=== PATIENT | female | born 1970 | race Caucasian/White ===

== ENCOUNTER → 2018-05-07 10:40 | Outpatient (REF) | payer OTHER, SELFPAY ==
--- NOTE | 2018-05-07 10:00 | PAPFT_PTH ---
PATIENT: Afshan Bella LOC: [facility] U#:[id number] AGE/SX: 55/F ROOM: RE05/07/[address]: Edna Galvin MD, DC : 1970 BED: DIS: SPEC #: [id number] RECD: 05/07/18 12:55 STATUS: EMA REQ #: [id number] DENIS: 05/07/18 10:[address]: Edna Galvin DEPT: [facility] Cytology RECD BY: Jerri Tobias Tissues: 1 - CX/ENDOCX FOR PAP SMEARS Procedures: PAP THIN PREP/UVM Screening HPV DNA PROBE Comments: [id number]
== END ==
LOC: LBN 10:40
PROVIDERS: PCP Family Medicine; Visit Provider Family Medicine
DX: Z12.4 Encounter for screening for malignant neoplasm of cervix (principal); Z11.51 Encounter for screening for human papillomavirus (HPV)
CPT/HCPCS: 88142; 87624

== ENCOUNTER 2019-06-04 00:55 | Outpatient (CLI) | payer OTHER, SELFPAY ==
--- NOTE | 2019-06-04 08:19 | DI.MAMMO_ITS ---
EXAM: MG MAMMO SCREENING CLINICAL HISTORY: screening, Z12.39. TECHNIQUE: Mammograms were interpreted according to the usual protocol including computer analysis w ith CAD system, tomosynthesis and C-view imaging. COMPARISON: No exams were available for comparison FINDINGS: The breast tissue is heterogeneously radiodense, which lowers the sensitivity of the examination. Th ere is no dominant mass and there are no suspicious calcifications. IMPRESSION: There is no evidence of malignancy, category 1. BI-RADS category C. Annual screening mammography is recommended. No prior examinations were available and if follow-up prior images can be retrieved, th en an addendum report will follow.
== END 2019-06-04 01:15 ==
PROVIDERS: PCP Family Medicine; Visit Provider Family Medicine
DX: Z12.31 Encounter for screening mammogram for malignant neoplasm of breast (principal)
CPT/HCPCS: 77063; 77067

== ENCOUNTER 2020-05-18 15:46 | Outpatient (REF) | payer OTHER, SELFPAY ==
[2020-05-18 14:23] LABS: ALT 17 U/L (14-59); AST 16 U/L (15-37); Albumin 4.3 g/dL (3.4-5.0); Alkaline Phosphatase 67 U/L (46-116); Anion Gap 4.8 mmol/L (3-11); BUN 15 mg/dL (7-18); Bilirubin, Total 0.5 mg/dL (0.2-1.0); CO2 32.2 mmol/L (21.0-32.0); CREATININE 0.71 mg/dL (0.55-1.02); Calcium 8.9 mg/dL (8.5-10.1); Calculated LDL 73 mg/dL (<100); Chloride 105 mmol/L (98-107); Cholesterol 166 mg/dL (<200); Glucose 80 mg/dL (74-106); HDL Cholesterol 84 mg/dL (40-60); Potassium 4.1 mmol/L (3.5-5.1); Sodium 142 mmol/L (136-145); Total Protein 7.7 g/dL (6.4-8.2); Triglyceride 49 mg/dL (<150)
== END 2020-05-18 16:06 ==
LOC: LBN 15:46
PROVIDERS: PCP Family Medicine; Visit Provider Family Medicine
DX: Z00.00 Encounter for general adult medical examination without abnormal findings (principal); Z13.220 Encounter for screening for lipoid disorders; Z13.228 Encounter for screening for other metabolic disorders
CPT/HCPCS: 80053; 80061

== ENCOUNTER 2020-09-28 08:31 | Outpatient (CLI) | payer OTHER, SELFPAY ==
[2020-09-29 16:33] LABS: COVID-19 RT-PCR UVMMC Result Negative (Negative)
== END 2020-09-28 08:51 ==
PROVIDERS: PCP Family Medicine; Visit Provider Family Medicine
DX: R53.83 Other fatigue (principal); J34.89 Other specified disorders of nose and nasal sinuses
CPT/HCPCS: U0003

== ENCOUNTER 2021-05-24 11:45 | Outpatient (REF) | payer OTHER, SELFPAY ==
--- NOTE | 2021-05-24 08:45 | PAPFT_PTH ---
PATIENT: Afshan Bella LOC: [facility] U#:[id number] AGE/SX: 51/F ROOM: RE05/24/[address]: Edna Galvin MD, DC : 1970 BED: DIS: 05/24/2021 SPEC #: [id number] RECD: 05/24/21 12:28 STATUS: SKYLERBeverly RELizbet #: [id number] DENIS: 05/24/21 08:[address]: Edna Galvin DEPT: [facility] Cytology RECD BY: Cheryl Decker Tissues: 1 - CX/ENDOCX FOR PAP SMEARS Procedures: PAP THIN PREP/UVM Screening HPV DNA PROBE Comments: [id number]
== END 2021-05-24 11:46 | disposition home or self-care (01) ==
LOC: LBN 11:45
PROVIDERS: PCP Family Medicine; Visit Provider Family Medicine
DX: Z12.4 Encounter for screening for malignant neoplasm of cervix (principal); Z11.51 Encounter for screening for human papillomavirus (HPV); Z01.419 Encounter for gynecological examination (general) (routine) without abnormal findings
CPT/HCPCS: 88142; 87624

== ENCOUNTER 2021-06-16 02:17 | Outpatient (CLI) | payer OTHER, SELFPAY ==
--- NOTE | 2021-06-16 08:49 | DI.MAMMO_ITS ---
Exam(s) MAMMO SCREENING EXAM: MAMMO SCREENING CLINICAL HISTORY: screening,Z12.39 TECHNIQUE: Bilateral full field digital CC and MLO mammographic images were obtained with 3D tomosyn thesis and utilizing computer aided detection (CAD). COMPARISON: Available for comparison. FINDINGS: Masses/Architectural Distortion: None seen. Microcalcifications: No suspicious pleomorphic-type are seen. Skin Thickening/Nipple Retraction: None. IMPRESSION: 1. No significant interval change with no specific features of malignancy noted. 2. Unless there is more urgent need, screening mammography is recommended, as per [employer] [employer] guidelines. BI-RADS Category 1 - Negative Breast Density - Category C - Heterogeneously dense Breast density category C or D implies that the patient has dense breast tissue. Dense breast tissue is very common and is not abnormal but dense breast tissue can make it harder to find cancer on a ma mmogram. Also, dense breast tissue may increase their breast cancer risk. This information about the result of the mammogram report was provided to the patient to raise their awareness. Use this report when you speak with the patient about their risks for breast cancer, which includes their family hist ory. At that time, you may recommend for more screening tests (Ultrasound or MRI) as they might be us eful based on their risk. A negative radiographic report should not delay biopsy if a dominant or clinically suspicious mass is present. Up to ten percent of cancers are not identified on mammography. A negative report may reinforce clinical impression. Adenosis and dense breasts may obscure an underlying neoplasm. False positive reports average 6 to 10%. Patient will receive a letter notifying them of these results.
== END 2021-06-16 02:37 ==
PROVIDERS: PCP Family Medicine; Visit Provider Family Medicine
DX: Z12.31 Encounter for screening mammogram for malignant neoplasm of breast (principal)
CPT/HCPCS: 77063; 77067

== ENCOUNTER 2022-01-27 10:02 | Day surgery (SDC) | payer OTHER, SELFPAY ==
--- NOTE | 2022-01-26 16:28 | COLE_ITS ---
Colonoscopy Report Date of procedure: 01/27/22 Pre-op diagnosis general: Colon cancer screening Post-op diagnosis procedure note: other (Polyp) Surgeon: Loulou Huynh Anesthesia Type: General:No Airway Estimated blood loss (mL): 1 Pathology: other Complications: None Disposition: same day Prep: Miralax/Dulcolax Retraction Time: 11 Procedure Description: After informed consent was obtained the patient was taken to the procedure room and placed in a left decubitous position. Monitors were applied and a time out was done. The patients name, date of , procedure, allergies to medications and metal in their body was reviewed. The patient was then sedated. Once se dated and comfortable a rectal exam was done. External exam was normal. Internal exam revealed a normal sphincter tone and no palpable masses. The scope was then introduced and retrofelexed. No Internal hemorrhoids were identified. The scope was then advanced to the cecum without difficulty. She does have a tortuous/redundant colon. The TI and appendiceal orifice were identified. The prep was be BPS 3 in all segments for a total of 9.. The scope was then slowly retracted over 11 minutes back into the rectum. She has a 0.75 mm polyp first, slightly raised polyp, at 90 cm. This is removed with a cold snare. All specimen is retrieved and no bleeding is noted. There are no diverticula or other abnormalities visualized today. The mucosa is pink and healthy. Scope was removed and the patient was woken up and taken back to Same day surgery in stable condition. The patient tolerated the procedure well and there were no immediate complications. Follow up: The patient should follow up in 7 years unless they develop changes in bowel habits or other new gastrointestinal complaints.
--- NOTE | 2022-01-26 16:28 | PDOC.DSDIS_ITS ---
Discharge Plan Disposition Patient Disposition: HOME Condition: Good Discharge Details Reason For Visit: Colon scope Attending Provider: Loulou Huynh Primary Care Provider: Edna Galvin Home Meds and New Rx's Prescriptions: Discontinued polyethylene glycol 3350 17 gram/dose powder 238 g PO ONCE Qty: 238 0RF Rx Instructions: take per colonoscopy instructions bisacodyl [Dulcolax (bisacodyl)] 5 mg tablet,delayed release (DR/EC) 5 mg PO ONCE Qty: 4 0RF Rx Instructions: take per colonoscopy instructions Discharge Instructions Additional Instructions: DSU Colonoscopy Post- Op Instructions Instructions for Everyone who is given Anesthesia: For your safety, please do the following for the next twenty-four (24) hours: *Do Not operate a motor vehicle (car, truck, motorcycle, etc.) *Do Not drink alcoholic beverages or use any recreational drugs for the first 24 hours or while taking pain medications. The medications in your body may have a reaction that can be dangerous. *Do Not make any important decisions or sign any important papers. Findings: x1 small polyp Follow up: My office will send a letter in 2 to 3 weeks time detailing as to what type of polyp it was and when we want you to repeat the colonoscopy. 1. No lifting over 20 pounds or strenuous activity for the first 24 hours after your procedure. After 24 hours there are no restrictions on your activity but you may feel fatigued for a few days. 2. After you arrive home you may have a light meal and return to your normal diet as you can tolerate it without feeling sick to your stomach. 3. You may have a bloated, gaseous feeling in your belly (abdomen) after a colonoscopy. Passing gas and belching will help. Walking or lying down on your left side with your knees flexed may relieve the discomfort. Call the office at [phone] (Office) or [phone] (Hospital) right away if you notice any of the following: a.Vomiting of blood or ?coffee ground stools?. b.Rectal bleeding 1Tbsp, blood clots or continuous bleeding. c.Severe belly (abdominal) pain. d.A hard distended belly (abdomen) and an inability to pass gas. 4. Please don?t expect to have a normal BM (bowel movement) for 2-3 days after your procedure. 5. If there are questions regarding the findings of your procedure, please contact your doctor 6. If you are unable to contact your doctor with a problem, contact the hospital at [phone]. 7. Continue all your regular medications unless directed otherwise. I understand the above instructions and have no questions. Signature of Patient or Adult Escort Name of Responsible Adult Escort Signature of Nurse Date/Time Activity:: See above Diet:: See above Discharge Orders Discharge Orders: Discharge Order (Routine); Ordered 01/26/22 Ordered By: Loulou Huynh
[2022-01-27 10:28] VITALS: BP 109/68; PULSE 83; RESP 16; TEMP 36.3; O2SAT 99
[2022-01-27] MEDS: Lactated Ringers 1,000 ML 80 ML IV (10:55)
--- NOTE | 2022-01-27 11:08 | ANES.PREOP_ITS ---
General Info Date of Service Date Performed: 01/27/22 Height: 5 ft 7 in Weight: 59.4 kg Body Mass Index (BMI): 20.5 Surgical Procedure: Operation Date: 01/27/22 11:05 Proposed Procedure Side Surgeon edwin Huynh DO Meds Allergies and Home Medications Allergies Allergy/AdvReac Type Severity Reaction Status Date / Time No Known Allergies Allergy Unverified 01/27/22 10:27 Current Visit Medications: Current Medications Generic Name Dose Route Start Last Admin Trade Name Freq PRN Reason Stop Dose Admin Hyoscyamine Sulfate 0.125 mg 01/26/22 16:27 Hyoscyamine 0.125 Mg Sl/Oral/Chew SL DIRECTED PRN Ringer's Solution 1,000 mls @ 80 mls/hr 01/27/22 06:00 01/27/22 10:55 IV 02/25/22 23:59 80 mls/hr INFUSION MARIA DEL CARMEN Administration IV Miscellaneous Supplies 1 each 01/27/22 06:00 Iv Access IV 02/25/22 23:59 DIRECTED MARIA DEL CARMEN Ondansetron HCl 4 mg 01/26/22 16:27 Ondansetron 4 Mg/2 Ml Vial IVP Q4H PRN PRN Nausea / Vomiting Sodium Chloride 0 ml 01/27/22 06:00 Normal Saline Flush 10 Ml Syr IV 02/25/22 23:59 PRN PRN Sodium Chloride 0 ml 01/27/22 06:00 Normal Saline 10 Ml Vial IJ 02/25/22 23:59 DIRECTED PRN Sterile Water 0 ml 01/27/22 06:00 Water,Injection,Sterile 10 Ml Vial IJ 02/25/22 23:59 DIRECTED PRN PFSH Active Problems Active Problems: Problem Status Onset Code Uterine leiomyoma D25.9 Annual physical exam 02/22/16 Z00.00 Impacted cerumen of both ears H61.23 Encounter for screening colonoscopy Z12.11 Medical History Medical History (Updated 01/27/22 @ 10:26 by Nayeli Loza) 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 [place] murmur Tobacco Smoking/Tobacco Use Status: Never Passive smoking exposure: Yes Second hand exposure: Yes Alcohol Alcohol Intake: current Alcohol intake frequency: holidays/special occasions only Alcohol type: wine and hard liquor Substance Use Substance use: Never Substance use type: does not use Vital Signs and Lab Results Vital Signs Most Recent Vital Signs in EMR: Most Recent Vital Signs Temp Pulse Resp BP Pulse Ox 36.3 C L 83 16 109/68 99 01/27/22 10:28 01/27/22 10:28 01/27/22 10:28 01/27/22 10:28 01/27/22 10:28 Point of Care Results Point of Care Results: POC- Test(urine) Negative 01/27/22 10:44 Lab Results Blood Type / Crossmatch: No Data to Display Complete Blood Count: No Data to Display Complete Metabolic Panel: No Data to Display Liver Function Panel: No Data to Display Coagulation Panel: No Data to Display Cardiac Panel: No Data to Display Arterial Blood Gas: No Data to Display Venous Blood Gas: No Data to Display Pancreas Panel: No Data to Display Thyroid Panel: No Data to Display Infectious Disease: No Data to Display Blood Cultures: No Data to Display Toxicology Panel: No Data to Display Panel: No Data to Display Anesthesia Assessment and Plan Anesthesia History Personal History: No History of Anesthesia Complications Family History: No Family History of Anesthesia Complications Exercise Tolerance Exercise Tolerance: Metabolic Equivalents>4 Pertinent Negatives Pertinent Negatives: No Symptoms of GERD, No Major Cardiovascular Symptoms or Complaints (Mild murmur Grade 1) and No History of CVA/TIA Cardiac & Pulmonary Exam Cardiac Exam: Normal S1/S2 Heart Sounds Pulmonary Exam: Clear Bilateral Breath Sounds Implantable Cardiac Device Does patient have a Pacemaker or an ICD?: No Airway Exam Known Difficult Airway: No Mallampati Class: 1 Mouth Opening: Normal (> 3cm) Thyromental Distance: Greater than 3 cm Neck Range of Motion: Full ROM Neck Circumference: Normal Teeth Condition: Normal Dentition ASA Classification ASA Score: ASA 2 Emergency Case?: No NPO Status NPO Status: NPO Clears >2 hours, Solids >8 hours Status Status: Negative HCG Anesthesia Plan Resuscitation Status: Full Code Anesthesia Technique: General Anesthesia Airway Planned: Natural Airway Pain Management: Surgeon and patient request nerve block Monitors Used: Standard Monitors
[2022-01-27 11:13] VITALS: BMI 20.5
--- NOTE | 2022-01-27 11:34 | BOWEL_PTH ---
PATIENT: Afshan Bella LOC: [facility] U#:[id number] AGE/SX: 51/F ROOM: RE01/27/[address]: Loulou Huynh : 1970 BED: DIS: 01/27/2022 SPEC #: [id number] RECD: 01/27/22 12:09 STATUS: EMA RE #: [id number] DENIS: 01/27/22 11:[address]: Loulou Huynh DEPT: Surgical Specimen RECD BY: Cheryl Decker ENTERED: 01/27/22 12:10 SP TYPE: Bowel OTHR DR: Edna Galvin MD, DC Tissues: 1 - BIOPSY BOWEL Procedures: GROSS AND MICRO LEVEL 4 Comments: [id number]
[2022-01-27 11:52] VITALS: BP 108/73; PULSE 81; RESP 20; TEMP 36.3; O2SAT 98
--- NOTE | 2022-01-27 11:52 | W.ANESPOSTOP ---
Postoperative Evaluation Date, Time and Location Date Performed: 01/27/22 Time Performed: 10:53 Patient Location: Day Surgery Unit Vital Signs Most Recent Imported Vital Signs: Most Recent Vital Signs Temp Pulse Resp BP Pulse Ox 36.3 C L 83 16 109/68 99 01/27/22 10:28 01/27/22 10:28 01/27/22 10:28 01/27/22 10:28 01/27/22 10:28 Most Recent Manually Entered Vital Signs: Adult Blood Pressure: 108/73 Heart Rate: 81 Respirations: 12 Oxygen Saturation (%): 98 Temperature (C): 36.3 C Pain Score (0-10 Scale): 0 Pain Score Most Recent Pain Score: Most Recent Pain Score Pain Level 0 01/27/22 10:28 Assessment Mental Status: Awake (Alert & Oriented to Patient Baseline) Airway and Respiratory Function: Patent airway with normal (patient baseline) respiratory exam Cardiovascular Function: Hemodynamically Stable Hydration Status: Volume Overload (See Note) Nausea & Vomiting: No Nausea or Vomiting Pain: Pt. Denies Any Pain Peripheral Nerve Block: Patient did not receive a nerve block
[2022-01-27 11:54] VITALS: BP 108/73; PULSE 81; RESP 12; TEMPC 36.3; O2SAT 98
[2022-01-27 12:20] VITALS: BP 105/70; PULSE 68; RESP 18; TEMP 36.2; O2SAT 100
== END 2022-01-27 12:40 | disposition home or self-care (01) ==
PROVIDERS: PCP Family Medicine; Visit Provider Surgery
PROC: 0DJD8ZZ Inspection of Lower Intestinal Tract, Via Natural or Artificial Opening Endoscopic (ICD-10-PCS; CPT 45378; principal; 2022-01-27 11:00)
DX: Z12.11 Encounter for screening for malignant neoplasm of colon (principal); K63.5 Polyp of colon; K63.89 Other specified diseases of intestine
CPT/HCPCS: 45385; 81025; 88305

== ENCOUNTER → 2023-06-26 01:04 | Outpatient (CLI) | payer OTHER, SELFPAY ==
--- NOTE | 2023-06-26 06:30 | DI.MAMMO_ITS ---
Exam(s) MAMMO SCREENING EXAM: MAMMO SCREENING CLINICAL HISTORY: screening, z12.39 TECHNIQUE: Bilateral full field digital CC and MLO mammographic images were obtained with 3D tomosyn thesis and utilizing computer aided detection (CAD). COMPARISON: Available for comparison. FINDINGS: Masses/Architectural Distortion: None seen. Microcalcifications: No suspicious pleomorphic-type are seen. Skin Thickening/Nipple Retraction: None. IMPRESSION: 1. No significant interval change with no specific features of malignancy noted. 2. Unless there is more urgent need, screening mammography is recommended, as per [employer] guidelines. BI-RADS Category 1 - Negative Breast Density - Category C - Heterogeneously dense Breast density category C or D implies that the patient has dense breast tissue. Dense breast tissue is very common and is not abnormal but dense breast tissue can make it harder to find cancer on a ma mmogram. Also, dense breast tissue may increase their breast cancer risk. This information about the result of the mammogram report was provided to the patient to raise their awareness. Use this report when you speak with the patient about their risks for breast cancer, which includes their family hist ory. At that time, you may recommend for more screening tests (Ultrasound or MRI) as they might be us eful based on their risk. A negative radiographic report should not delay biopsy if a dominant or clinically suspicious mass is present. Up to ten percent of cancers are not identified on mammography. A negative report may reinforce clinical impression. Adenosis and dense breasts may obscure an underlying neoplasm. False positive reports average 6 to 10%. Patient will receive a letter notifying them of these results.
== END ==
PROVIDERS: PCP Family Medicine; Visit Provider Family Medicine
DX: Z12.31 Encounter for screening mammogram for malignant neoplasm of breast (principal)
CPT/HCPCS: 77063; 77067

== ENCOUNTER 2023-10-30 12:35 | Outpatient (CLI) | payer OTHER, SELFPAY ==
[2023-10-30 10:19] LABS: Abs Immature Grans 0.01 10^3/uL (0.0-0.06); Absolute Basophil Count 0.05 10^3/uL (0.0-0.2); Absolute Eosinophil Count 0.05 10^3/uL (0.0-0.7); Absolute Lymphocyte Count 1.84 10^3/uL (1.2-3.4); Absolute Neutrophil Count 3.91 10^3/uL (1.2-6.7); Basophils % 0.8; Eosinophils % 0.8; HCT 38.2 % (36.0-46.0); HGB 12.4 g/dL (11.2-15.7); Immature Grans % 0.2; Lymphocytes % 28.5; MCH 28.8 pg (27.0-33.0); MCHC 32.5 % (32.0-36.0); MCV 89 fL (80-95); MPV 9.1 fL (8.0-11.0); Monocytes % 9.3; Neutrophils % 60.4; Platelet Count 310 10^3/uL (130-400); RBC 4.31 10^6/uL (3.93-5.22); RDW 12.4 % (11.7-14.6); RDW-SD 40.5 fL; WBC 6.46 10^3/uL (4.4-10.8)
[2023-10-30 11:49] LABS: HCG Quant, Pregnancy 4 mIU/mL (1-3)
[2023-10-30 18:06] LABS: CEA <0.5 ng/mL (See Note)
[2023-10-30 18:35] LABS: CA 125 15 U/mL (<30)
[2023-10-31 09:27] LABS: CA 19-9 11 U/mL (<35)
[2023-11-01 11:16] LABS: HE4 54 pmol/L (<=140)
== END 2023-10-30 12:36 | disposition home or self-care (01) ==
LOC: LBO 12:36
PROVIDERS: PCP Family Medicine; Visit Provider Obstetrics & Gynecology
DX: N83.8 Other noninflammatory disorders of ovary, fallopian tube and broad ligament (principal)
CPT/HCPCS: 36415; 86304; 86305; 82378; 84702; 85025; 86301

== ENCOUNTER → 2023-11-07 01:04 | Outpatient (CLI) | payer OTHER, SELFPAY ==
--- NOTE | 2023-11-07 09:00 | DI.RAD_ITS ---
Exam(s) XR ANKLE LT COMPLETE EXAM: XR ANKLE LT COMPLETE CLINICAL HISTORY: left ankle pain, not resolving,M25.572 TECHNIQUE: 2D digital imaging was performed of the left ankle. Four images were obtained. AP, late ral and oblique views were obtained. COMPARISON: No exams were available for comparison FINDINGS: BONES: No acute fracture is present. No bony destructive lesion is seen. There is a small enthesophyt e at the posterior calcaneus. JOINTS:The ankle mortise is normally aligned. The joint spaces are well maintained. SOFT TISSUE: Normal. IMPRESSION: Unremarkable radiographs of the left ankle. DATA REPOSITORY: RADIATION DOSE DELIVERED:
== END ==
PROVIDERS: PCP Family Medicine; Visit Provider Family Medicine
DX: M25.572 Pain in left ankle and joints of left foot (principal)
CPT/HCPCS: 73610

== ENCOUNTER 2024-07-08 09:23 | Outpatient (CLI) | payer OTHER, SELFPAY ==
[2024-07-08 12:34] LABS: HCT 42.3 % (36.0-46.0); HGB 13.1 g/dL (11.2-15.7); MCH 28.6 pg (27.0-33.0); MCV 92 fL (80-95); MPV 9.4 fL (8.0-11.0); Platelet Count 324 10^3/uL (130-400); RBC 4.58 10^6/uL (3.93-5.22); RDW 12.8 % (11.7-14.6); RDW-SD 43.7 fL; WBC 5.76 10^3/uL (4.4-10.8)
[2024-07-08 12:53] LABS: Iron 46 ug/dL (50-170)
[2024-07-08 12:56] LABS: ALT 20 U/L (14-59); AST 20 U/L (15-37); Albumin 4.3 g/dL (3.4-5.0); Alkaline Phosphatase 109 U/L (46-116); Anion Gap 7.8 mmol/L (3-11); BUN 18 mg/dL (7-18); Bilirubin, Total 0.37 mg/dL (0.2-1.0); CO2 29.2 mmol/L (21.0-32.0); CREATININE 0.7 mg/dL (0.55-1.02); Calcium 9.4 mg/dL (8.5-10.1); Calculated LDL 79 mg/dL (<100); Chloride 107 mmol/L (98-107); Cholesterol 186 mg/dL (<200); Estimated GFR 102.07 (mL/min/1.73m2); Ferritin 30 ng/mL (8-252); Glucose 91 mg/dL (74-106); HDL Cholesterol 99 mg/dL (40-60); Potassium 4.6 mmol/L (3.5-5.1); Sodium 144 mmol/L (136-145); TSH (W/Ref FT4) 1.35 uIU/mL (0.36-3.74); Total Protein 8.2 g/dL (6.4-8.2); Triglyceride 42 mg/dL (<150)
== END 2024-07-08 09:24 ==
LOC: LOS 09:23
PROVIDERS: PCP Family Medicine; Referring Provider Family Medicine; Visit Provider Family Medicine
DX: E03.9 Hypothyroidism, unspecified (principal); Z00.00 Encounter for general adult medical examination without abnormal findings; I10 Essential (primary) hypertension; Z12.39 Encounter for other screening for malignant neoplasm of breast; Z23 Encounter for immunization
CPT/HCPCS: 36415; 80053; 80061; 85027; 82728; 83540; 84443

== ENCOUNTER 2024-09-04 01:11 | Outpatient (CLI) | payer OTHER, SELFPAY ==
--- NOTE | 2024-09-04 07:15 | DI.MAMMO_ITS ---
Exam(s) MAMMO SCREENING EXAM: MAMMO SCREENING CLINICAL HISTORY: screening,z12.39 TECHNIQUE: Bilateral full field digital CC and MLO mammographic images were obtained with 3D tomosyn thesis and utilizing computer aided detection (CAD). COMPARISON: Available for comparison. FINDINGS: Masses/Architectural Distortion: There is an area of breast asymmetry in the medial posterior right b reast on the craniocaudad view. It may represent fibroglandular tissue, but a spot compression views requested for further evaluation. Microcalcifications: No suspicious pleomorphic-type are seen. Skin Thickening/Nipple Retraction: None. IMPRESSION: 1. Area of asymmetric breast tissue in the medial posterior right breast on the craniocaudad view. 2. A spot compression views requested for further evaluation. Limited right breast ultrasound may be indicated at that time. BI-RADS Category 0 - Incomplete: Need additional imaging evaluation Breast Density - Category C - Heterogeneously dense Breast density category C or D implies that the patient has dense breast tissue. Dense breast tissue is very common and is not abnormal but dense breast tissue can make it harder to find cancer on a ma mmogram. Also, dense breast tissue may increase their breast cancer risk. This information about the result of the mammogram report was provided to the patient to raise their awareness. Use this report when you speak with the patient about their risks for breast cancer, which includes their family hist ory. At that time, you may recommend for more screening tests (Ultrasound or MRI) as they might be us eful based on their risk. A negative radiographic report should not delay biopsy if a dominant or clinically suspicious mass is present. Up to ten percent of cancers are not identified on mammography. A negative report may reinforce clinical impression. Adenosis and dense breasts may obscure an underlying neoplasm. False positive reports average 6 to 10%. Patient will receive a letter notifying them of these results.
== END 2024-09-04 01:31 ==
LOC: DI 01:11
PROVIDERS: PCP Family Medicine; Visit Provider Family Medicine
DX: Z12.31 Encounter for screening mammogram for malignant neoplasm of breast (principal); R92.333 Mammographic heterogeneous density, bilateral breasts
CPT/HCPCS: 77063; 77067

== ENCOUNTER 2024-09-09 02:51 | Outpatient (CLI) | payer OTHER, SELFPAY ==
--- NOTE | 2024-09-09 09:31 | DI.MAMMO_ITS ---
Exam(s) MAMMO SCREEN CALL BACK UNI EXAM: MAMMO SCREEN CALL BACK UNI CLINICAL HISTORY: F/U MAMMO, R92.8,ASYMMETRIC BREAST TISSUE, RT TECHNIQUE: Spot compression views with tomographic imaging were performed. COMPARISON: 04 September 2024 and exams back to 2019. FINDINGS: No suspicious masses or suspicious microcalcifications are seen. No persistent abnormality is seen on the additional views performed. The findings are consistent wit h overlying fibroglandular tissue. There has been no significant change from prior exams. IMPRESSION: BI-RADS Category 1, Negative Yearly screening mammography is recommended. Breast Density - Category C - Heterogeneously dense
== END 2024-09-09 03:11 ==
LOC: DI 02:51
PROVIDERS: PCP Family Medicine; Visit Provider Family Medicine
DX: Z12.31 Encounter for screening mammogram for malignant neoplasm of breast (principal); R92.8 Other abnormal and inconclusive findings on diagnostic imaging of breast; R92.333 Mammographic heterogeneous density, bilateral breasts
CPT/HCPCS: 77063; 77067

== ENCOUNTER 2025-01-29 01:44 | Outpatient (CLI) | payer BC, SELFPAY ==
[2025-01-29 13:12] LABS: Vitamin B12 98 pg/mL (193-986)
== END 2025-01-29 01:45 | disposition home or self-care (01) ==
LOC: LOS 01:45
PROVIDERS: PCP Family Medicine; Visit Provider Family Medicine
DX: E53.8 Deficiency of other specified B group vitamins (principal)
CPT/HCPCS: 36415; 82607

== ENCOUNTER → 2025-09-07 00:34 | Outpatient (CLI) | payer BC, SELFPAY ==
--- NOTE | 2025-09-07 06:30 | DI.MAMMO_ITS ---
Exam(s) MAMMO SCREENING EXAM: MAMMO SCREENING CLINICAL HISTORY: screening,z12.39 TECHNIQUE: Bilateral full field digital CC and MLO mammographic images were obtained with 3D tomosynthesis and utilizing computer aided detection (CAD). COMPARISON: Comparison is made with prior examinations. FINDINGS: Masses/Architectural Distortion: No suspicious masses or areas of architectural distortion are present. Microcalcifications: No suspicious pleomorphic-type are seen. Skin Thickening/Nipple Retraction: None. IMPRESSION: 1. No significant interval change with no specific features of malignancy noted. 2. Unless there is more urgent need, screening mammography is recommended, as per [employer] [employer] guidelines. BI-RADS Category 1 - Negative Breast Density - Category C - The breast are heterogeneously dense, which may obscure small masses. Breast density Category C or D implies that the patient has dense breast tissue. Dense breast tissue can make it harder to find cancer on a mammogram. Dense breast tissue is also associated with an increased risk of breast cancer. This information about the result of the mammogram report was provided to the patient to raise their awareness. Use this report when you speak with the patient about their risks for breast cancer, which includes their family history. At that time, you may recommend additional screening tests (Ultrasound or MRI) as these tests may add significant information. A negative radiographic report should not delay biopsy if a dominant or clinically suspicious mass is present. Up to ten percent of cancers are not identified on mammography. A negative report may reinforce clinical impression. Adenosis and dense breasts may obscure an underlying neoplasm. False positive reports average 6 to 10%. Patient will receive a letter notifying them of these results.
== END ==
LOC: DI 00:34
PROVIDERS: PCP Family Medicine; Visit Provider Family Medicine
DX: Z12.31 Encounter for screening mammogram for malignant neoplasm of breast (principal)
CPT/HCPCS: 77063; 77067